=== PATIENT | female | born 1935 | race Caucasian/White ===

== ENCOUNTER 2019-07-09 09:03 | Observation (INO) | payer OTHER, MEDICAID ==
[~2019-07-09] VITALS: Ht 157.5 cm; Wt 93.9 kg
[2019-07-09 09:11] VITALS: BP_SYST 154
[2019-07-09 09:30] LABS: BASOPHILS % (AUTO) 0.6 % (0.0-2.0); EOSINOPHILS # (AUTO) 0.1 K/uL (0.0-0.4); EOSINOPHILS % (AUTO) 1.2 % (0.0-4.0); HEMATOCRIT 30.4 % (36-48); LYMPHOCYTES # (AUTO) 3.5 K/uL (1.0-5.5); LYMPHOCYTES % (AUTO) 49.2 % (20.5-51.5); MEAN CORPUSCULAR HEMOGLOBIN 30 pg (27-31); MEAN CORPUSCULAR HGB CONC 33 % (32-36); MEAN CORPUSCULAR VOLUME 92 fL (79.0-98.0); MONOCYTES # (AUTO) 0.4 K/uL (0.0-1.0); MONOCYTES % (AUTO) 6.1 % (1.7-9.3); NEUTROPHILS % (AUTO) 42.9 % (40.0-70.0); PLATELET COUNT (AUTO) 181 K/uL (130-430); RED BLOOD CELL COUNT(AUTO) 3.32 MIL/uL (4.2-6.2); RED CELL DISTRIBUTION WIDTH 14.4 % (9.0-15.0)
[2019-07-09] MEDS ORDERED: ASPIRIN 81 MG TAB.CHEW PO ONE ×2 (09:30→16:15)
[2019-07-09 09:41] LABS: ANION GAP 6 (5-15); CALCIUM 9.1 mg/dL (8.4-11.0); CHLORIDE 102 mmol/L (98-107); CREATININE 1.64 mg/dL (0.55-1.30); GLUCOSE 103 mg/dL (70-99); POTASSIUM 4.4 mmol/L (3.5-5.1); SODIUM SERUM 137 mmol/L (136-145); UREA NITROGEN, BLOOD 34 mg/dL (8-21)
[2019-07-09 09:47] LABS: ALANINE AMINOTRANSFERASE 25 U/L (12-78); ALBUMIN 3.3 g/dL (3.4-4.8); ASPARTATE AMINOTRANSFERASE 32 U/L (10-37); TOTAL BILIRUBIN 0.2 mg/dL (0.0-1.0)
[2019-07-09 10:11] LABS: CKMB RELATIVE INDEX 0.6 (0.0-2.9); CREATINE KINASE MB 1.5 ng/mL (0-3.6)
[2019-07-09] MEDS ORDERED: SENN-234 PO (10:53)
[2019-07-09] MEDS ORDERED: OXYC10TA56 PO (10:55)
[2019-07-09] MEDS ORDERED: ZOLP5TAB2 PO (11:01)
[2019-07-09] MEDS ORDERED: AMLO10TA88 PO (11:01)
[2019-07-09] MEDS ORDERED: GABA-531 PO (11:01)
[2019-07-09] MEDS ORDERED: METO50TA7 PO (11:01)
[2019-07-09] MEDS ORDERED: PRED5TAB PO (11:01)
[2019-07-09] MEDS ORDERED: POTA10TA15 PO (11:01)
[2019-07-09] MEDS ORDERED: METH-364 PO (11:02)
[2019-07-09] MEDS ORDERED: CLOP300T2 PO (11:04)
[2019-07-09] MEDS ORDERED: HYDR-4039 PO (11:04)
[2019-07-09] MEDS ORDERED: LISI40TA4 PO (11:04)
[2019-07-09] MEDS ORDERED: LIP80 PO (11:05)
[2019-07-09] MEDS ORDERED: FERR140T2 PO (11:07)
[2019-07-09] MEDS ORDERED: GLU500 PO (11:11)
[2019-07-09] MEDS ORDERED: HYDR-4272 PO (11:11)
[2019-07-09] MEDS ORDERED: MOM PO (11:12)
[2019-07-09] MEDS ORDERED: BISA-79 PR (11:12)
[2019-07-09] MEDS ORDERED: HYDROcodone/ACETAMIN 5-325 MG TAB (NORCO/ VICODIN) PO ONE (11:15)
[2019-07-09] MEDS ORDERED: FLEETMO RC (11:20)
[2019-07-09] MEDS ORDERED: ACET-2165 PO (11:20)
[2019-07-09 12:07] VITALS: BP_SYST 159
[2019-07-09] MEDS ORDERED: ACETAMINOPHEN 325 MG TABLET PO PRN (13:00)
[2019-07-09] MEDS ORDERED: MILK OF MAGNESIA 30 ML UDC PO PRN (13:00)
[2019-07-09] MEDS ORDERED: MINERAL OIL 133 ML ENEMA RC PRN (13:00)
[2019-07-09] MEDS ORDERED: ACETAMINOPHEN 325 MG TABLET PO SCH (13:00)
[2019-07-09] MEDS ORDERED: INSULIN REGULAR, HUMAN 100 UNITS/ML, 10 ML VIAL (humuLIN R) SUBCUT PRN (13:15)
[2019-07-09] MEDS ORDERED: DEXTROSE 50% JECT 50 ML DISP.SYRIN IVP PRN (13:15)
[2019-07-09] MEDS ORDERED: GLUCOSE 15 GM GEL (in 37.5 GM TUBE) PO PRN (14:45)
[2019-07-09] MEDS ORDERED: D5W 1,000 ML IV PRN (14:45)
[2019-07-09] MEDS ORDERED: DEXTROSE 50%-WATER 50 ML DISP.SYRIN IVP PRN (14:45)
[2019-07-09] MEDS: GABAPENTIN 300 MG CAPSULE PO SCH ×2 (15:35→21:06)
[2019-07-09 16:36] VITALS: BP_SYST 157
[2019-07-09 17:06] LABS: CHOLESTEROL 137 mg/dL (<200); HDL CHOLESTEROL 56 mg/dL (>55); LDL CHOLESTEROL 61 mg/dL (<100); TRIGLYCERIDES 113 mg/dL (30-150)
[2019-07-09 20:00] VITALS: BP_SYST 117
[2019-07-09] MEDS: FERROUS SULFATE 325 MG TABLET.DR PO SCH (21:06)
[2019-07-09] MEDS: oxyCODONE HCL 10 MG TAB.ER.12H PO SCH (21:07)
[2019-07-10] VITALS (7 sets, daily range): BP systolic 112–177
[2019-07-10] MEDS: GABAPENTIN 300 MG CAPSULE PO SCH ×3 (08:05→20:14)
[2019-07-10] MEDS: oxyCODONE HCL 10 MG TAB.ER.12H PO SCH ×2 (08:06→20:14)
[2019-07-10] MEDS ORDERED: LISINOPRIL 20 MG TABLET PO SCH (09:00)
[2019-07-10] MEDS ORDERED: ASPIRIN 81 MG TAB.CHEW PO SCH (09:00)
[2019-07-10] MEDS ORDERED: PREDNISONE 5 MG TABLET PO SCH (09:00)
[2019-07-10] MEDS ORDERED: amLODIPine BESYLATE 10 MG TABLET PO SCH (09:00)
[2019-07-10] MEDS ORDERED: hydrALAZINE HCL 25 MG TABLET PO SCH (09:00)
[2019-07-10] MEDS ORDERED: CLOPIDOGREL BISULFATE 75 MG TABLET PO SCH (09:00)
[2019-07-10] MEDS ORDERED: METOPROLOL SUCCINATE 50 MG TAB.SR.24H (TOPROL XL) PO SCH (09:00)
[2019-07-10] MEDS ORDERED: ATORVASTATIN 20 MG TABLET PO SCH (09:00)
[2019-07-10] MEDS ORDERED: POTASSIUM CHLORIDE 10 MEQ TAB.PRT.SR PO SCH (09:00)
[2019-07-10] MEDS ORDERED: MORPHINE 2 MG/ML INJ. SYRINGE IVP ONE (10:00)
[2019-07-10] MEDS: MORPHINE 2 MG/ML INJ. SYRINGE IVP PRN ×2 (11:16→17:31)
[2019-07-10] MEDS ORDERED: REGADENOSON 0.4 MG/5 ML SYRINGE IVP ONE (12:00)
[2019-07-10] MEDS: FERROUS SULFATE 325 MG TABLET.DR PO SCH ×2 (12:08→20:14)
== END 2019-07-10 21:28 ==
LOC: SED 09:03 → STU 10:24 → INTOOBSV 10:24 → STU 11:25
PROVIDERS: ADMIT Internal Medicine Hospice and Palliative Medicine; ATTEND Internal Medicine Hospice and Palliative Medicine
DX: R07.89 Other chest pain (principal); E11.22 Type 2 diabetes mellitus with diabetic chronic kidney disease; I12.9 Hypertensive chronic kidney disease with stage 1 through stage 4 chronic kidney disease, or unspecified chronic kidney disease; N18.9 Chronic kidney disease, unspecified; E78.5 Hyperlipidemia, unspecified; I63.9 Cerebral infarction, unspecified; M48.061 Spinal stenosis, lumbar region without neurogenic claudication; Z86.73 Personal history of transient ischemic attack (TIA), and cerebral infarction without residual deficits
CPT/HCPCS: 36415 ×2; 71045; 80053; 80061; 82550; 82553; 82962 ×2; 83880; 84484 ×2; 85025; 87081; 93005; 93306; 96374; 96376; 99285; G0378 ×2; J1815; J2270; J7512; J2785